=== PATIENT | female | born 1950 | race African-American/Black ===

== ENCOUNTER → 2019-11-29 | Day surgery (SDC) | payer MEDICARE, BC ==
--- NOTE | 2019-11-28 21:20 | Pre-Procedure Note/Attestation ---
Pre-Procedure Note/Attestation Complete Prior to Procedure Planned Procedure: right - Removal of cataract and placement of intraocular lens, right eye Procedure Narrative: Removal of cataract and placement of intraocular lens, right eye Indications for Procedure Pre-Operative Diagnosis: Cataract, combined, right eye Attestation I attest that I discussed the nature of the procedure; its benefits; risks and complications; and alternatives (and the risks and benefits of such alternatives), prior to the procedure, with the patient (or the patient's legal business office representative). I attest that, if there was a reasonable possibility of needing a blood transfusion, the patient (or the patient's legal business office representative) was given the [place] [facility] standardized written summary, pursuant to the Dave Lanre Blood Safety Act ([place] Health and Safety Code # 1645, as amended). I attest that I re-evaluated the patient just prior to the surgery and that there has been no change in the patient's H&P, except as documented below: Marek Kang MD Nov 28, 2019 21:20
[~2019-11-29] VITALS: Ht 162.6 cm; Wt 79.4 kg
[2019-11-29] VITALS (8 sets, daily range): BP systolic 128–158; BP diastolic 52–89
[~2019-11-29] MED LIST: BRIMONIDINE TART5 ML BOTH EYES; BSS 15ml BTL ONE; BSS 500ml btl ONE; CELEBREX200 MG ORAL; Carbachol 0.01% Op Soln 1.5ml vial ONE; EPINEPHrine 1mg/1ml Amp ONE; EXFORGE 10-3201 EACH ORAL; IBUPROFEN600 M1 ORAL; LATANOPROST2.5 ML BOTH EYES; LEVOXYL25 MCG ORAL; LR 1000ml 1,000 ML IVLG SCH; LR 1000ml ONE; LYRICA75 M1 ORAL; Lidocaine 1% MPF 10mg/ml 5ml ONE; Lidocaine 4% Amp 5ml ONE; Maxitrol Opth Oint 3.5gm ONE; NS Irrig 1000ml ONE; Povidone-Iodine 5% opth solution ONE; Sodium Hyaluronate 10 mg/ml 0.85ml ONE; Sterile Water Irrig 1000ml IRRIG ONE; TIMOLOL 0.5%-DO10 ML OP; Tetracaine 0.5% Opth 4ml Soln ONE; fentaNYL 100 mcg/2 mL IV ONE; fentaNYL 100 mcg/2 mL IV PRN; prednisoLONE acetate 1% Opth Susp 1ml ONE
[2019-11-29] MEDS: Tropicamide 1% Opth 15ml Soln RIGHT EYE SCH ×3 (08:19→08:37)
[2019-11-29] MEDS: Tobradex Opth Susp 2.5ml RIGHT EYE SCH ×3 (08:19→08:37)
[2019-11-29] MEDS: Ciprofloxacin Opth Soln 5ml RIGHT EYE SCH ×3 (08:19→08:37)
[2019-11-29] MEDS: Akten 3.5% 1ml Btl RIGHT EYE SCH ×3 (08:19→08:38)
[2019-11-29] MEDS: Phenylephrine 10% Opth Soln 5ml RIGHT EYE SCH ×3 (08:19→08:37)
--- NOTE | 2019-11-29 08:20 | Anethesia Preoperative Eval ---
Anesthesia Pre-op PMH/ROS General Date of Evaluation: Nov 29, 2019 Time of Evaluation: 08:15 Anesthesiologist: Jesse ASA Score: ASA 3 Mallampati Score Class I : Soft palate, uvula, fauces, pillars visible Class II: Soft palate, uvula, fauces visible Class III: Soft palate, base of uvula visible Class IV: Only hard plate visible Mallampati Classification: Class II Surgeon: Pearl Diagnosis: R eye cataract Surgical Procedure: Cataract extraction Anesthesia History: none Family History: no anesthesia problems Allergies: Coded Allergies: No Known Allergies (Unverified , 11/28/19) Medications: see eMAR Patient NPO?: Yes Past Medical History Cardiovascular: Reports: HTN; Denies: CAD, [place], valve dz, arrhythmia, other Pulmonary: Denies: asthma, COPD, JOSE L, other Gastrointestinal/Genitourinary: Reports: GERD; Denies: CRI, ESRD, other Neurologic/Psychiatric: Reports: depression/anxiety; Denies: dementia, CVA, TIA, other Endocrine: Reports: DM, hypothyroidism; Denies: steroids, other HEENT: Reports: cataract (L), cataract (R), glaucoma Hematology/Immune: Denies: anemia, DVT, bleeding disorder, other Musculoskeletal/Integumentary: Reports: OA; Denies: RA, DJD, DDD, edema, other PMH Narrative: as above PSxH Narrative: See H&P Anesthesia Pre-op Phys. Exam Physician Exam Constitutional: NAD Neurologic: CN 2-12 intact Cardiovascular: RRR, no M/R/G Respiratory: CTA Gastrointestinal: S/NT/ND Airway Exam Mallampati Score: Class II MO: limited Neck: stiff ROM: limited Teeth: missing Dentures: no upper, no lower Anesthesia Pre-op A/P Labs see chart Studies Pre-op Studies: EKG - SR Risk Assessment & Plan Assessment: ASA 3 Plan: MAC Status Change Before Surgery: Seferino Armendariz MD Nov 29, 2019 08:19
[2019-11-29] MEDS: Cyclopentolate 2% Opth Sol RIGHT EYE SCH ×3 (08:22→08:37)
--- NOTE | 2019-11-29 10:04 | Discharge Instructions ---
Discharge Instructions Discharge Instructions Follow Up Orders Continue preop eye drops Wear shield at all times except to place eye drops Followup tomorrow in Dr Kang's office For Congestive Heart Failure Reminder Report to your physician any weight gain of 5 pounds or more in one week. Mraek Kang MD Nov 29, 2019 10:04
--- NOTE | 2019-11-29 10:06 | Brief Operative Note ---
Immediate Post Operative Note Operative Note Pre-op Diagnosis: Cataract, combined, right eye Procedure: Phaco PC IOL OD Post-op Diagnosis: same as pre-op Surgeon: Una Kang MD MS Engine Dispatcher: none Anesthesiologist: Dr Molina Anesthesia: local, MAC Specimen: none Complications: none Fluids: see chart Implant(s) used?: Yes - PCB00 14.0 Marek Kang MD Nov 29, 2019 10:06
--- NOTE | 2019-11-29 10:08 | Immediate Post-Op Evaluation ---
Immediate Post-Op Evalulation Immediate Post-Op Evalulation Procedure: R eye cataract extraction with IOL Date of Evaluation: Nov 29, 2019 Time of Evaluation: 10:07 IV Fluids: 300 Blood Products: none Estimated Blood Loss: none Urinary Output: none Blood Pressure Systolic: 134 Blood Pressure Diastolic: 76 Pulse Rate: 72 Respiratory Rate: 18 O2 Sat by Pulse Oximetry: 99 Temperature (Fahrenheit): 97.6 Pain Score (1-10): 1 Nausea: No Vomiting: No Complications none Patient Status: awake, patent, none Hydration Status: adequate Seferino Molina MD Nov 29, 2019 10:08
--- NOTE | 2019-11-29 10:45 | Operative Note - Dictated ---
DATE OF OPERATION: 11/29/2019 SURGEON: Marek Kang MD. BEHAVIORAL INTERVENTIONIST SURGEON: None. ANESTHESIOLOGIST: Seferino Molina MD. ANESTHESIA: Local/standby/monitored anesthesia care. PREOPERATIVE DIAGNOSIS: Cataract, combined, right eye. POSTOPERATIVE DIAGNOSES: Cataract, combined, right eye. PROCEDURE: 1. Phacoemulsification of cataract, right eye. 2. Placement of posterior chamber intraocular lens, right eye (model, PCB00, power 14.0). SPECIMENS: None. COMPLICATIONS: None. INDICATIONS FOR SURGERY: The patient had the painless progressive decrease in visual acuity in the right eye secondary to cataract. The patient understands the risks of surgery including infection, bleeding, need for further surgery, loss of vision, no improvement in vision, loss of the eye, loss of life, glaucoma, retinal detachment, and understands these risks and elects to proceed with surgery. FINDINGS: The patient had a +2 nuclear sclerotic cataract as well as a +2 cortical cataract. OPERATIVE NOTE: After informed consent was obtained, the patient was brought into the operating room, placed in supine position. Cardiac and respiratory monitors were attached. A time-out was performed and all criteria were met and everyone in the room agreed. The right eye was then draped and prepped in sterile manner for ocular surgery. A lid speculum was placed in the eye. A 1% lidocaine preservative-free was injected at the approximate 9 o'clock limbus. A conjunctival peritomy was performed from approximately 8:30 to 9:30 and dissected posteriorly. Hemostasis was maintained with bipolar cautery. A 2.6 mm limbal incision was made and dissected anteriorly. A paracentesis was made at 12 o'clock and Shugarcaine was injected into the anterior chamber. Healon was injected into the anterior chamber. The anterior chamber was then entered using a 2.6 mm keratome through the limbal incision. An anterior capsulorrhexis was then performed. Hydrodissection and hydrodelineation of the lens was then performed. The lens was then phacoemulsified using divide and conquer four-quadrant technique. Residual cortical material was then aspirated. Healon was injected into the anterior chamber and capsular bag. The tip of the syringe with the lens was brought through the limbal incision and the lens was injected into the capsular bag and centered nicely with a Sinskey hook (this was a pre-loaded intra-ocular lens). Healon was aspirated from the anterior chamber and capsular bag. The optic and both haptics were in the capsular bag and aligned along the 3 o'clock to 9 o'clock meridian. One 10-0 nylon interrupted suture was then placed through the limbal incision after both wounds were hydrated closed. The knot was rotated and buried. Care was taken during the entire procedure not to touch the endothelium. The wounds were checked and found to be watertight. The conjunctiva was closed with forceps cautery. The lid speculum and drapes were removed from the eye and drops of Pred Forte, ciprofloxacin, and TobraDex were applied to the eye followed by Maxitrol ointment and a shield. The patient tolerated the procedure well and left the operating room awake, alert, and in stable condition. Marek Kang M.D. DR: Cristhian JOB#: [id number] CC:
--- NOTE | 2019-11-29 12:03 | 48 Hour Post Anesthesia Eval ---
Post Anesthesia Evaluation Procedure: R eye cataract extraction with IOL Date of Evaluation: Nov 29, 2019 Time of Evaluation: 12:02 Blood Pressure Systolic: 136 0: 78 Pulse Rate: 68 Respiratory Rate: 18 Temperature (Fahrenheit): 97.6 O2 Sat by Pulse Oximetry: 98 Airway: patent Nausea: No Vomiting: No Pain Intensity: 1 Hydration Status: adequate Cardiopulmonary Status: stable Mental Status/LOC: patient returned to baseline Follow-up Care/Observations: n/a Post-Anesthesia Complications: none Follow-up care needed: ready to discharge Seferino Molina MD Nov 29, 2019 12:03
== END | disposition home or self-care (01) ==
LOC: SUR 07:55
DX: H25.11 Age-related nuclear cataract, right eye (principal); H25.011 Cortical age-related cataract, right eye; I10 Essential (primary) hypertension; K21.9 Gastro-esophageal reflux disease without esophagitis; E11.9 Type 2 diabetes mellitus without complications; E03.9 Hypothyroidism, unspecified; M19.90 Unspecified osteoarthritis, unspecified site; F32.9 Major depressive disorder, single episode, unspecified; F41.9 Anxiety disorder, unspecified
CPT/HCPCS: 66984; 93005; 94003; J0171; J1100; J2704; J3010; J7120; U0002; V2632; 94150